=== PATIENT | female | born 1980 | race Caucasian/White ===

== ENCOUNTER 2018-05-06 01:47 | Emergency (ER) | payer OTHER ==
[~2018-05-06] VITALS: Ht 162.6 cm; Wt 104.5 kg
[2018-05-06] MEDS ORDERED: IBUP-2070 PO (01:53)
[2018-05-06] MEDS ORDERED: CYCLOBENZAPRINE HCL 10 MG TABLET PO ONE (04:15)
[2018-05-06] MEDS ORDERED: TraMADol HCL 50 MG TABLET PO ONE (04:15)
[2018-05-06 05:42] VITALS: BP 134/65
== END 2018-05-06 05:53 | disposition home or self-care (01) ==
LOC: EMS 01:48
DX: M54.5 Low back pain (principal)